=== PATIENT | male | born 1960 | race Caucasian/White ===

== ENCOUNTER 2016-12-23 13:36 | Emergency (ER) | payer OTHER ==
[~2016-12-23] VITALS: Ht 170.2 cm; Wt 68.0 kg
== END 2016-12-23 15:18 | disposition home or self-care (01) ==
LOC: ED 13:36
PROC: 0T9B70Z Drainage of Bladder with Drainage Device, Via Natural or Artificial Opening (ICD-10-PCS; principal; 2016-12-23)
DX: R33.9 Retention of urine, unspecified (principal)
CPT/HCPCS: 51702; 96372; 99283; J1170